=== PATIENT | female | born 1995 | race African-American/Black ===

== ENCOUNTER 2017-05-23 11:33 | Emergency (ER) | payer OTHER ==
[~2017-05-23] VITALS: Ht 172.7 cm; Wt 90.2 kg
[2017-05-23 12:19] LABS: HEMATOCRIT 39.4 % (36.0-46.0); MCH 25.5 PG (29.0-34.0); MCV 77.3 FL (83-99); MEAN PLAT.VOLUME 9.5 uM^3 (9.5-12.4); PLATELET COUNT 331 K/uL (156-360); RBC DIS.WIDTH-CV 12.8 % (11.8-14.6); RBC DIS.WIDTH-SD 35.5 % (39-53); WHITE BLOOD COUNT 8.5 K/uL (4.1-10.2)
[2017-05-23 12:29] LABS: CHLORIDE 109 mEq/L (99-109); POTASSIUM 4.1 mEq/L (3.7-5.4); SODIUM 140 mEq/L (136-147)
[2017-05-23 12:32] LABS: GLUCOSE 96 mg/dL (70-99)
[2017-05-23 12:33] LABS: ANION GAP 7 MEQ/L (2-14)
[2017-05-23 12:34] LABS: TOTAL BILIRUBIN 0.3 mg/dL (0.0-1.0)
[2017-05-23 12:35] LABS: ALKALINE PHOSPHATASE 92 IU/L (3-129)
[2017-05-23 12:37] LABS: GFR ESTIMATE (CALCULATED) > 59 mL/min/; UREA NITROGEN (BUN) 8 mg/dL (9-23)
[2017-05-23 12:48] LABS: QUANTITATIVE HCG < 4.0 MIU/ML
[2017-05-23 13:53] LABS: ADD MIUA? YES; BILIRUBIN NEGATIVE; BLOOD SMALL; COLOR YELLOW ((YELLOW)); GLUCOSE (STRIP) NEGATIVE; KETONES NEGATIVE; LEUKOCYTES NEGATIVE; NITRITE NEGATIVE; PROTEIN (STRIP) NEGATIVE; SPECIFIC GRAVITY 1.015 (1.000-1.030); UROBILINOGEN 0.2 MG/DL (0.2-1.0)
[2017-05-23 14:21] LABS: BACTERIA RARE /HPF; EPITHELIAL CELLS 2+ /HPF; MUCUS TRACE /LPF; RED BLOOD CELLS 0-5 /HPF (0-5); UCUL ADDED? NO; WHITE BLOOD CELLS 0-5 /HPF (0-5)
[2017-05-23 14:46] VITALS: BP 123/88
== END 2017-05-23 14:50 | disposition home or self-care (01) ==
LOC: EME 11:33
DX: N94.6 Dysmenorrhea, unspecified (principal)
CPT/HCPCS: 80053; 81003; 84702; 85027; 99281; 99284

== ENCOUNTER 2017-06-12 08:34 | Emergency (ER) | payer OTHER ==
[~2017-06-12] VITALS: Ht 172.7 cm; Wt 91.6 kg
[2017-06-12 08:43] VITALS: BP 125/74
[2017-06-12] MEDS ORDERED: NAPROSYN500 MG PO (10:01)
== END 2017-06-12 10:44 | disposition home or self-care (01) ==
LOC: EME 08:34
DX: S93.402A Sprain of unspecified ligament of left ankle, initial encounter (principal); W10.9XXA Fall (on) (from) unspecified stairs and steps, initial encounter
CPT/HCPCS: 73610; 99281; 99284

== ENCOUNTER 2017-06-27 15:32 | Emergency (ER) | payer OTHER ==
[~2017-06-27] VITALS: Ht 170.2 cm; Wt 90.7 kg
[~2017-06-27 15:32] MED LIST: NAPROSYN500 MG PO
[2017-06-27] MEDS ORDERED: FLEXERIL5 MG PO (19:23)
[2017-06-27] MEDS ORDERED: NAPROSYN500 MG PO (19:23)
[2017-06-27 19:46] VITALS: BP 135/94
== END 2017-06-27 19:47 | disposition home or self-care (01) ==
LOC: EME 15:32
DX: S70.01XA Contusion of right hip, initial encounter (principal); W18.30XA Fall on same level, unspecified, initial encounter
CPT/HCPCS: 73502; 99281; 99283

== ENCOUNTER 2018-05-11 14:15 | Emergency (ER) | payer SELFPAY ==
[~2018-05-11] VITALS: Ht 170.2 cm; Wt 93.2 kg
[~2018-05-11 14:15] MED LIST changes: +FLEXERIL5 MG PO
[2018-05-11 16:59] VITALS: BP 119/81
== END 2018-05-11 16:59 | disposition home or self-care (01) ==
LOC: EME 14:15
DX: H61.23 Impacted cerumen, bilateral (principal)
CPT/HCPCS: 99281; 99284